=== PATIENT | female | born 1955 ===

== ENCOUNTER 2017-12-29 11:29 | Day surgery (SDC) | payer OTHER ==
[~2017-12-29 11:29] MED LIST: PROTONIX40 MG
== END 2017-12-29 19:40 | disposition home or self-care (01) ==
LOC: CIR.AMB 11:29
DX: M80.88XA Other osteoporosis with current pathological fracture, vertebra(e), initial encounter for fracture (principal)

== ENCOUNTER 2019-10-23 07:34 | Outpatient (CLI) | payer OTHER | END 2019-10-23 07:35 | disposition home or self-care (01) | LOC: SONOGRAMA 07:34 | DX: N63.20 Unspecified lump in the left breast, unspecified quadrant (principal) ==

== ENCOUNTER 2020-11-10 05:24 | Emergency (ER) | payer OTHER ==
[~2020-11-10] VITALS: Ht 162.6 cm; Wt 61.2 kg
[2020-11-10] MEDS ORDERED: BENTYL10 MG/1 ML (05:32)
[2020-11-10] MEDS ORDERED: FLAGYL500MG (05:32)
[2020-11-10] MEDS ORDERED: CIPRO500 MG (05:32)
[2020-11-10] MEDS ORDERED: LEVSIN/SL0.125 MG SL (08:18)
[2020-11-10] MEDS ORDERED: PROTONIX40 MG PO (08:18)
[2020-11-10] MEDS ORDERED: CIPRO500 MG PO (08:18)
[2020-11-10] MEDS ORDERED: FLAGYL500MG PO (08:18)
== END 2020-11-10 08:40 | disposition home or self-care (01) ==
LOC: ER 05:24
DX: K57.92 Diverticulitis of intestine, part unspecified, without perforation or abscess without bleeding (principal); R10.32 Left lower quadrant pain

== ENCOUNTER 2020-11-27 12:27 | Inpatient (IN) | payer OTHER ==
[~2020-11-27] VITALS: Ht 162.6 cm; Wt 59.0 kg
[~2020-11-27 12:27] MED LIST changes: +BENTYL10 MG/1 ML; +CIPRO500 MG; +CIPRO500 MG PO; +FLAGYL500MG; +FLAGYL500MG PO; +LEVSIN/SL0.125 MG SL; +PROTONIX40 MG PO
[2020-12-02] MEDS ORDERED: PANTOPRAZOLE SO40 MG (16:57)
== END 2020-12-03 14:43 | disposition home or self-care (01) | DRG 392 ==
LOC: ER 12:27 → MEDJ 11-28 14:24 → SEC-K 11-28 14:24 → MEDJ 11-28 17:05
PROVIDERS: ADMIT Specialist; ATTEND Specialist
PROC: BW21YZZ Computerized Tomography (CT Scan) of Abdomen and Pelvis using Other Contrast (ICD-10-PCS; principal; 2020-12-01)
DX: K57.32 Diverticulitis of large intestine without perforation or abscess without bleeding (principal); M84.48XA Pathological fracture, other site, initial encounter for fracture; N20.0 Calculus of kidney; K44.9 Diaphragmatic hernia without obstruction or gangrene; K42.9 Umbilical hernia without obstruction or gangrene; L27.0 Generalized skin eruption due to drugs and medicaments taken internally; T36.0X5A Adverse effect of penicillins, initial encounter; Z20.822 Contact with and (suspected) exposure to COVID-19

== ENCOUNTER 2020-12-31 20:53 | Emergency (ER) | payer OTHER ==
[~2020-12-31] VITALS: Ht 162.6 cm; Wt 56.7 kg
[~2020-12-31 20:53] MED LIST changes: +PANTOPRAZOLE SO40 MG
[2020-12-31] MEDS ORDERED: CARAFATE1 GM (21:02)
[2020-12-31] MEDS ORDERED: PEPCID AC20 MG (21:02)
[2021-01-01] MEDS ORDERED: MIRALAX510 GM PO (01:39)
== END 2021-01-01 01:53 | disposition home or self-care (01) ==
LOC: ER 20:53
DX: K59.09 Other constipation (principal)

== ENCOUNTER 2021-06-18 17:36 | Emergency (ER) | payer OTHER ==
[~2021-06-18] VITALS: Ht 162.6 cm; Wt 59.0 kg
[~2021-06-18 17:36] MED LIST changes: +CARAFATE1 GM; +MIRALAX510 GM PO; +PEPCID AC20 MG
[2021-06-18] MEDS ORDERED: MAGNESIUM400 MG (18:01)
[2021-06-18] MEDS ORDERED: LYRICA50 MG (18:01)
[2021-06-18] MEDS ORDERED: ACETAMINOPHEN650 M2 PO (22:59)
[2021-06-18] MEDS ORDERED: PEPCID AC20 MG PO (22:59)
[2021-06-18] MEDS ORDERED: PROTONIX20 MG PO (22:59)
[2021-06-18] MEDS ORDERED: INTESTINEX680 M2 PO (22:59)
[2021-06-18] MEDS ORDERED: LEVSIN0.125 MG PO (22:59)
== END 2021-06-18 23:23 | disposition home or self-care (01) ==
LOC: ER 17:36
DX: R10.2 Pelvic and perineal pain (principal)

== ENCOUNTER 2022-04-03 07:52 | Emergency (ER) | payer OTHER ==
[~2022-04-03] VITALS: Ht 152.4 cm; Wt 62.1 kg
[~2022-04-03 07:52] MED LIST changes: +ACETAMINOPHEN650 M2 PO; +INTESTINEX680 M2 PO; +LEVSIN0.125 MG PO; +LYRICA50 MG; +MAGNESIUM400 MG; +PEPCID AC20 MG PO; +PROTONIX20 MG PO
[2022-04-03] MEDS ORDERED: CLONAZEPAM0.5 MG PO (08:08)
== END 2022-04-03 17:52 | disposition home or self-care (01) ==
LOC: ER 07:52
DX: K57.30 Diverticulosis of large intestine without perforation or abscess without bleeding (principal); N20.0 Calculus of kidney

== ENCOUNTER 2023-03-02 21:49 | Emergency (ER) | payer OTHER ==
[~2023-03-02] VITALS: Ht 162.6 cm; Wt 63.5 kg
[~2023-03-02 21:49] MED LIST changes: +CLONAZEPAM0.5 MG PO
[2023-03-03] MEDS ORDERED: LEVSIN/SL0.125 MG SL ×2 (08:05→08:06)
[2023-03-03] MEDS ORDERED: METRONIDAZOLE500 MG PO (08:05)
== END 2023-03-03 08:11 ==
LOC: ER 21:49
DX: R10.32 Left lower quadrant pain (principal); Z88.2 Allergy status to sulfonamides; K21.9 Gastro-esophageal reflux disease without esophagitis; K57.30 Diverticulosis of large intestine without perforation or abscess without bleeding; N20.0 Calculus of kidney